=== PATIENT | female | born 1985 | race Caucasian/White ===

== ENCOUNTER 2022-01-25 09:33 | Outpatient (CLI) | payer OTHER, SELFPAY ==
--- OUTSIDE RECORDS SUMMARY | 2022-01-25 10:47 | XMS_ITS ---
:1985 Author Care Team Providers Name Role Phone Charisse Beltran Primary Care Provider Unavailable Allergies Code Code System Name Reaction Severity Status Onset NKDA ? Medications Name Status Start Date Stop Date ? ? albuterol sulfate HFA 90 mcg/actuation aerosol inhaler Active ? Not available INHALE 2 PUFFS EVERY 4 HOURS NEEDED nitrofurantoin monohydrate/macrocrystals 100 mg capsule Active ? Not available Take 1 capsule oral every twelve hours with meals; Take on a fu ll stomach phenazopyridine 200 mg tablet Completed ? TAKE ONE TABLET BY MOUTH THREE TIMES DAILY NEEDED FOR PA IN, take with food Problems None recorded. Procedures None recorded. Results Lab Results Date Name Specimen Result Interpretation Description Value Range Status Address ? 08/15/2021 SARS CoV 2 RNA, Nose (nasal ? Result negative ? ? [facility] QL, SAMRA+probe, passage) [facility] [place]: [address] 06/28/2021 SARS CoV 2 RNA, Nose (nasal ? Result negative ? ? [facility] QL, SAMRA+probe, passage) [facility] [place]: [address] [place] [address] [place] [address] Past Encounters 08/15/2021 Exposure to SARS-CoV-2 [facility]: [address] [place] [address], [place] [address], Ph. [phone] 06/28/2021 Exposure to SARS-CoV-2 Charisse Beltran PA-C: [address], [place] [address], Ph. [phone] Social History None recorded. Vaccine List Vaccine Type Hep B, unspecified formulation 01/15/1993 03/08/1993 07/26/1993 HPV, quadrivalent 03/13/2006 05/16/2006 09/18/2006 influenza, injectable, quadrivalent, pre servative free 02/27/2016 influenza, seasonal, injectable 02/21/2010 02/20/2011 02/26/2012 MMR 02/03/1997 Td (adult), adsorbed 02/03/1997 Tdap 10/06/2012 05/03/2016 Plan of Care Reminders Provider Appointments None recorded. ? ? Lab None recorded. ? ? Referral None recorded. ? ? Procedures None recorded. ? ? Surgeries None recorded. ? ? Imaging None recorded. ? ? Vitals 08/15/2021 08:40AM [facility] Blood Pressure 146/81 mm[Hg] 06/28/2021 09:00AM [facility] Blood Pressure 110/80 mm[Hg]
[2022-01-25 16:04] LABS: SARS PCR* Negative SARS-CoV-2 (Negative)
== END 2022-01-25 09:34 | disposition home or self-care (01) ==
LOC: KYNREF 09:33
PROVIDERS: Visit Provider Nurse Practitioner Family
DX: Z11.52 Encounter for screening for COVID-19 (principal)
CPT/HCPCS: 87635

== ENCOUNTER 2022-01-28 06:36 | Day surgery (SDC) | payer OTHER, SELFPAY ==
[2022-01-28] VITALS (36 sets, daily range): BP systolic 101–133; BP diastolic 57–84; PULSE 70–113; RESP 14–16; TEMP 36.2–36.8; O2SAT 87–99; BMI 34.9
[2022-01-28 07:05] LABS: Ur HCG Qualitative* Negative (Negative)
[2022-01-28] MEDS: LACTATED RINGERS 1000 ML 1,000 ML 100 ML IV (07:30)
[2022-01-28] MEDS: SODIUM CHLORIDE 0.9 % (FLUSH) 10 ML SYRINGE IVF (07:30)
[2022-01-28] MEDS: BUPIVACAINE 0.25% 30 ML INJECTION (08:16)
--- NOTE | 2022-01-28 08:26 | W.ANESCHARGE ---
Anesthesia Charges Start Date/Time Anesthesia Start Date: 01/28/22 Anesthesia Start Time: 07:47 Stop Date/Time Anesthesia Stop Date: 01/28/22 Anesthesia Stop Time: 10:40 Summary Emergency: No
--- NOTE | 2022-01-28 10:54 | PM.GSPRC ---
Operative Note Date of procedure: 01/28/22 Type of Procedure: Laparoscopic repair of epigastric and umbilical hernia repair with mesh. Procedure Description: After discussing the risks and benefits of the procedure, the patient signed informed consent.? The operative site was marked and the patient was brought to the operating room and placed on the operating table in supine position.? Care was taken to pad the patient's pressure points.?? The patient was then intubated by anesthesia.?? The operative site was then prepped and draped in the usual sterile fashion.? A time-out was then performed. Entrance to the abdomen was gained via Visiport technique in the left upper quadrant. The abdomen was then insufflated. This was briefly surveyed for injury. There was none. The epigastric hernia was visible with incarcerated preperitoneal fat and falciform ligament fat. The umbilical hernia contained preperitoneal fat as well. Two additional 5 mm ports were placed in the right lateral abdomen/right lower quadrant under direct vision. Once this was done, I began by reducing the epigastric hernia. The incarcerated fat was reduced by incising the peritoneum at the hernia base. Once this was completely reduced, I used LigaSure to divide the falciform ligament to create a flat area for mesh placement. The patient had a moderate amount of preperitoneal fat in the midline and covering the umbilicus and so to facilitate flat mesh placement, I created preperitoneal flaps down past the umbilical hernia using LigaSure. I started 1st on the patient's right. Once this was done I placed 2 additional ports on the patient's left side, a 10 mm port in the left upper quadrant and a 5 mm port in the patient's left lower quadrant. I then similarly took down the peritoneum on the right. Once this was done I measured the hernias. They were less than 10 cm apart. The epigastric hernia was 3 cm. The umbilical hernia was approximately 1.5 cm. A 15 cm mesh appeared to cover both hernia sufficiently with sufficient overlap superiorly and inferiorly on each. A combination of PDS and Vicryl fascial stitches were then placed in the 10 x 15 cm mesh. This was then placed into the abdomen through the 10 port. Having previously marked out the hernias as well as the 4 quadrants on the skin, a skin ayala was then made in the exact center of the planned hernia placement and through this a Jonny-Laure needle was then used to grasp the positioning suture on the Ventralight ST mesh. Then, using Jonny-Laure, I created stab incisions at 3, 6, 9, and 12 o'clock and pulled the trans fascial sutures through this. The mesh was then pulled to the abdominal wall and found to lay flat, with the abdominal pressure decreased to 11. The trans fascial sutures were then tied. V lock suture was then advanced into the abdomen. The mesh was sewn in a running fashion on the lateral aspect of each side of the mesh to prevent rolling of the edges. Several small tacks were placed at the inferior portion of the mesh and covered with the peritoneal flaps which were tacked in place using the V lock suture. Once this was done, the echo positioning device was then removed from the abdomen intact. The 10 mm port site was then closed with 0 Vicryl using a Jonny-Laure needle. Once this was done, the abdomen was desufflated and the ports removed. The incisions were then closed with 0 Monocryl subcuticular suture. Glue was then applied to all of the incisions including the stab incisions. Anesthesia then performed a tap block. Please see their note for details. ? The patient was then woken and transported to the recovery area in stable condition. ? The patient tolerated the procedure well. Findings: 3 cm epigastric hernia as well as an umbilical hernia. Anesthesia: GETA Surgeon: Mirian Honeycutt MD Estimated blood loss (mL): 25 Condition: stable Disposition: PACU
--- NOTE | 2022-01-28 10:56 | W.PM.NB ---
Nerve Block Nerve Block Time Seen by Provider: 10:30 Date Seen: 01/28/22 Type of block requested by surgeon for post-operative analgesia: TAP Side: bilateral Time out performed: Yes Verification of patient name: Yes Verification of date of : Yes Site marking: site marked Name of person performing procedure: Con Continuous monitoring Was continuous monitoring of O2 sat, B/P, air sampling and monitoring, recorded every 15 minutes?: Yes Procedure Checklist: sterile prep, needles and gloves Ultrasound guided. Images saved: Yes Medications given in 5ml increments after negative aspiration: Marcaine %: 0.25 mL: 30 Needle gauge: 20 and Exparel mL: 10 Patient tolerated procedure well: Yes Additional comments: Needle noted adjacent to nerve Block Charges Block Charge (with Pro Fee): TAP Bilateral Use of Ultrasound Machine for Block: Yes- US Guidance/pain block
--- NOTE | 2022-01-28 10:56 | W.ANESCHARGE ---
Anesthesia Charges Start Date/Time Anesthesia Start Date: 01/28/22 Anesthesia Start Time: 07:47 Stop Date/Time Anesthesia Stop Date: 01/28/22 Anesthesia Stop Time: 10:40 Summary Emergency: No
[2022-01-28] MEDS: fentaNYL 100 MCG/2 ML inj 50 MCG IVP (10:57)
[2022-01-28] MEDS: HYDROCODONE-ACETAMIN 5-325 MG 1 TAB PO ×2 (12:05→13:20)
== END 2022-01-28 13:53 | disposition home or self-care (01) ==
PROVIDERS: Anesthesiology; Visit Provider Surgery
PROC: 0WQF4ZZ Repair Abdominal Wall, Percutaneous Endoscopic Approach (ICD-10-PCS; CPT 49653; principal; 2022-01-28 07:45)
DX: K43.6 Other and unspecified ventral hernia with obstruction, without gangrene (principal); K42.0 Umbilical hernia with obstruction, without gangrene
CPT/HCPCS: 49653; 00832; 64488; 76942; 81025; A4467; A9270; C1781; C9290; J0330; J1100; J1170; J1885; J2405; J2704; J2710; J3010; J3490; J7120

== ENCOUNTER 2022-02-26 11:06 | Emergency (ER) | payer OTHER, SELFPAY ==
[2022-02-26 11:15] VITALS: BP 117/76; PULSE 70; RESP 16; TEMP 36.6; O2SAT 97; BMI 32.6
--- NOTE | 2022-02-26 11:31 | ED.ABDPAIN ---
HPI - Abdominal Pain General Time Seen by Provider: 11:31 Date Seen: 02/26/22 Chief Complaint: Abdominal Pain Stated Complaint: Abdominal pain Time Seen by Provider: 02/26/22 11:30 Source: patient, RN notes reviewed and old records reviewed Mode of arrival: ambulatory Limitations: no limitations History of Present Illness HPI narrative: Patient is a very pleasant 36-year-old female who is 1 month postop laparoscopic hernia repair ventral and umbilical who comes to the emergency room with increasing right flank and right-sided abdominal pain. Patient states that she does not think there were any complications of her surgery however she did wake up from anesthesia with right flank pain. She noted that this continued and now has flared since February 12 to include increasing pain on the right lateral abdomen and now into the right upper quadrant. This is not associated with fever. She has not had any redness around her surgical incisions. She denies any vomiting. She feels like her upper abdomen is swollen and is very tender to the touch. She has no dysuria hematuria. She denies possibility of as she has her tubes tied. She notes movement greatly increases her pain. She has tried ibuprofen but does not think it is really working for her. Related Data Home Medications Medication Instructions Recorded Confirmed albuterol 90 mcg/actuation aerosol mcg inhalation 01/25/22 01/25/22 inhaler ibuprofen 400 mg tablet (IBU) 400 mg PO Q4-6H PRN 02/26/22 02/26/22 Previous Rx's Medication Instructions Recorded hydrocodone 5 mg-acetaminophen 325 1 - 2 tab PO Q6H PRN Pain #20 tabs 01/28/22 mg tablet Allergies Allergy/AdvReac Type Severity Reaction Status Date / Time No Known Allergies Allergy Unknown Verified 02/13/22 13:11 Review of Systems Status of ROS Reports: 10 or more systems reviewed and unremarkable except as noted in History and below Const Denies: fever, chills, change in weight or fatigue Eyes Denies: change in vision ENMT Denies: throat pain or difficulty swallowing Cardio Denies: chest pain, edema, swelling of feet/ankles or shortness of breath with exertion Resp Denies: shortness of breath or cough GI Reports: abdominal pain; Denies: nausea, vomiting, diarrhea, constipation or difficulty swallowing Denies: painful urination Musculo Reports: back pain (Right flank) Integ/Breast Denies: rash Neuro Denies: headache, numbness in extremities or weakness in extremities Endo Denies: fatigue [facility] Medical History Asthma (07/12/10) Tobacco use (07/12/10) White classification A1 gestational diabetes mellitus (GDM) Surgical History History of gynecologic surgery S/P hernia surgery Status post delivery Status post tubal ligation Family History Mother High blood pressure Osteoarthritis Arthritis Father High blood pressure Throat cancer Maternal Grandfather Diabetes Coronary artery disease Maternal Grandmother High blood pressure Prediabetes Paternal Grandmother Breast cancer Social History Narrative: Single. 3 children. 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 Former smoker (quit in 2014). Alcohol socially. No illicit drugs. Smoking Status: Former smoker What tobacco products do you use: cigarettes Smoking quit date/years: <= 15 years ago Do you use any of these nicotine containing products: None How often do you have a drink containing alcohol: 2-3 times a week Alcohol type: beer How many standard drinks containing alcohol do you have on a typical day: 3 or 4 How often do you have six or more drinks on one occasion: Never AUDIT-C Alcohol total score: 4 Non-prescribed substance use: denies use Caffeine: Yes (1 cup 2x/week) Are you using contraception or practicing any form of control: Yes Exam Narrative: Exam Narrative: Patient is alert and oriented. Nontoxic in appearance. Does have increasing pain with movement. External ears eyes nose clear. Heart with regular rate and rhythm and lungs are clear in all lung braden. There did not appear to be increased pain with deep inspiration. Abdomen is firm with some mild tenderness in the right upper quadrant. Negative Frederick sign. Back is nontender with no CVA tenderness with percussion Lower extremities without edema. Const: Vital Signs, click to edit/add: Vital Signs - 24 hr 02/26/22 11:15 Temperature 97.8 F Pulse Rate [Pulse Oximeter] 70 Respiratory Rate 16 Blood Pressure [Ri ght Upper Arm] 117/76 Pulse Oximetry 97 Oxygen Delivery Me thod Room Air Course Course Hospital Course: Given patient's flank pain that has now continued, worsened and is now associated with right anterior abdominal pain will place patient through CT. Will also get labs to include a CBC, comprehensive panel, urinalysis, hCG. An IV will be placed and normal saline given pending IV contrast CT. Vital Signs Vital signs: Initial Vital Signs Temperature 97.8 F 02/26/22 11:15 Temperature Source Temporal Artery Scan 02/26/22 11:15 Pulse Rate 70 02/26/22 11:15 Respiratory Rate 16 02/26/22 11:15 Blood Pressure 117/76 02/26/22 11:15 Blood Pressure Mean 89 02/26/22 11:15 Blood Pressure Position Supine 02/26/22 11:15 Pulse Oximetry 97 02/26/22 11:15 Oxygen Delivery Method 02/26/22 11:15 Vital Signs Temperature 97.8 F 02/26/22 11:15 Pulse Rate 70 02/26/22 11:15 Respiratory Rate 16 02/26/22 11:15 Blood Pressure 117/76 02/26/22 11:15 Pulse Oximetry 97 02/26/22 11:15 Oxygen Delivery Method 02/26/22 11:15 Temperature 97.8 F 02/26/22 11:15 Pulse Rate 70 02/26/22 11:15 Respiratory Rate 16 02/26/22 11:15 Blood Pressure 117/76 02/26/22 11:15 Pulse Oximetry 97 02/26/22 11:15 Oxygen Delivery Method 02/26/22 11:15 MDM - Abdominal Pain MDM Narrative Medical decision making narrative: 1. Abdominal pain-CT negative for underlying abnormality. 2. Right flank pain-CT negative for underlying abnormality and urinalysis without evidence of UTI. 3. 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 She was able to view CT for herself and feels that this pain is most likely musculoskeletal. See she does suggest muscle relaxer as well as physical therapy and follow-up with Dr. Honeycutt next week. Patient does not have a primary MD and thus I did fill out physical therapy form. Patient will continue on ibuprofen as needed. Flexeril 10 mg p.o. t.i.d. p.r.n. number 30 via [id number] is given here. I did speak of the tendency for sedation with this medication and patient should not use alcohol nor should she drive with this medication. Medical Records Attestation: I reviewed the patient's medical records. Lab Data Attestation: I reviewed the patient's lab results. Labs: Lab Results 02/26/22 02/26/22 02/26/22 Range/Units 11:41 11:55 11:55 WBC 6.44 (4.50-11.00) K/uL RBC 4.37 (4.00-5.20) m/uL Hgb 13.0 (12.0-16.0) gm/dL Hct 37.3 (33.0-51.0) % MCV 85 (80-100) fL MCH 30 (26-34) pg MCHC 35 (32-36) gm/dL RDW Coeff of Lisa 12.4 (11.5-15.5) % Plt Count 232 (140-440) K/uL Neut % (Auto) 48.8 (42.0-72.0) % Lymph % (Auto) 38.2 (20-44) % [place] % (Auto) 9.5 (0.0-11.0) % Eos % (Auto) 3.0 (0.0-7.0) % Baso % (Auto) 0.3 (0.0-3.0) % Neut # (Auto) 3.15 (1.7-7.0) K/uL Lymph # (Auto) 2.46 (0.90-2.90) K/uL [place] # (Auto) 0.60 (0.00-0.90) K/UL Eos # (Auto) 0.19 (0.00-0.50) K/uL Baso # (Auto) 0.02 (0.00-0.30) K/uL Abs Immat Gran (auto) 0.01 (0.00-0.30) K/uL Sodium 139 (135-149) mmol/L Potassium 3.9 (3.6-5.1) mmol/L Chloride 103 (96-114) mmol/L Carbon Dioxide 28 (20-32) mmol/L BUN 16 (5-24) mg/dL Creatinine 0.6 (0.5-1.5) mg/dL Estimated Creat Clear 110.86 Estimated GFR 118 ml/min Glucose 135 H (60-115) mg/dL Calcium 9.4 (8.4-10.6) mg/dL Total Bilirubin 0.6 (0.1-1.5) mg/dL AST 28 (12-35) U/L ALT 31 (4-35) U/L Alkaline Phosphatase 76 (40-150) U/L C-Reactive Protein 0.6 (0.5-1.0) mg/dL Total Protein 7.4 (6.0-8.3) g/dL Albumin 4.5 (3.3-5.0) g/dL Urine Color Yellow (Yellow) Urine Appearance Slightly Cloudy A (Clear) Urine pH 7.0 (5.0-8.5) Ur Specific [place] 1.025 (1.000-1.030) Urine Protein Negative (Negative) Urine Glucose (UA) Negative (Negative) Urine Ketones Negative (Negative) Urine Blood Trace-intact A (Negative) Urine Nitrite Negative (Negative) Urine Bilirubin Negative (Negative) Urine Urobilinogen 0.2 (0.2-1.0) Ur Leukocyte Esterase Negative (Negative) Urine RBC 0-2 (0-2) Urine WBC 0-2 (0-5) Ur Squamous Epith Cells Moderate A (None-Few) Urine Bacteria Moderate A (None) Urine HCG, Qual Negative (Negative) Imaging Data CT scan - abdomen: Attestation: I have reviewed the pertinent imaging results. My impression: No acute findings Radiologist's impression: Moderate hepatomegaly and hepatic steatosis. No evidence of obstructive uropathy. Postoperative changes of the anterior abdominal wall status post ventral hernia repair with hernia mesh and demonstration of minimal inflammatory change within the epigastric omentum commensurate with likely prior omental infarct and/or fat necrosis changes. No other acute abdominal abnormality. Discharge Plan Discharge Clinical Impression: Back pain, Abdominal pain Patient Disposition: Home, Self-Care Condition: Improved Additional Instructions: Continue ibuprofen as needed for discomfort. We will also add Flexeril a muscle relaxant to be taken as needed. Please do not use alcohol if using this medication nor drive. This medicine can be sedating. I did write a follow-up physical therapy referral for you. Await phone call for appointment. Plan on seeing Dr. Honeycutt in clinic in a week. Return to the emergency room for fever and worsening symptoms. Prescriptions: No Action albuterol 90 mcg/actuation aerosol inhalation hydrocodone-acetaminophen 5-325 mg Tablet 1 - 2 tab PO Q6H PRN (Reason: Pain) Qty: 20 0RF ibuprofen [IBU] 400 mg tablet 400 mg PO Q4-6H PRN Follow Up/Referrals: Provider,Not a Local [Primary Care Provider] - Stand Alone Forms: [employer] Info Instructions
[2022-02-26] MEDS: 0.9 % SODIUM CHLORIDE 1000 ml 1,000 ML IV (11:55)
[2022-02-26 12:02] LABS: Basophils Absolute Auto 0.02 K/uL (0.00-0.30); Basophils Percent Auto 0.3 % (0.0-3.0); Eosinophils Absolute Auto 0.19 K/uL (0.00-0.50); Hematocrit 37.3 % (33.0-51.0); Immature Granulocytes Abs Auto 0.01 K/uL (0.00-0.30); Lymphocytes Absolute Auto 2.46 K/uL (0.90-2.90); Lymphocytes Percent Auto 38.2 % (20-44); Mean Corpuscular HGB Conc 35 gm/dL (32-36); Mean Corpuscular Hemoglobin 30 pg (26-34); Mean Corpuscular Volume 85 fL (80-100); Monocytes Percent Auto 9.5 % (0.0-11.0); Neutrophils Absolute Auto 3.15 K/uL (1.7-7.0); Neutrophils Percent Auto 48.8 % (42.0-72.0); Platelet Count* 232 K/uL (140-440); RDW Coefficient of Variation % 12.4 % (11.5-15.5); Red Blood Count 4.37 m/uL (4.00-5.20); White Blood Count* 6.44 K/uL (4.50-11.00)
[2022-02-26 12:03] LABS: Slide Review Reflex No
--- OUTSIDE RECORDS SUMMARY | 2022-02-26 12:06 | XMS_ITS | Clinical Summary ---
:1985 Author Organization [facility] [place] [address] Care Team Providers Name Role Phone Pcp, No Primary Care Provider Unavailable Zuri Jordan MD Unavailable Unavailable Allergies No known active allergies Medications Medication Sig Dispensed Refills Start Date End Date Status ALBUTEROL 90 inhale 1 puff by 0 12/03/2004 Active MCG/ACTUATION INHL inhalation route AERO every 4-6 hours as needed ORTHO EVRA 20 apply 1 patch by 3 months 1 03/13/2006 Active MCG-150 MCG/24 HR transdermal route TRANSDERM PATCH once weekly Active Problems No known active problems Immunizations Name Administration Dates Next Due Human Papilloma Virus Vaccine 09/18/2006, 05/16/2006, 200508/23/2005 Influenza, IIV3 (Age >=3 years) 02/17/2002 Pneumococcal Poly,23-Valent (Pneumovax) 02/17/2002 Td (Age >=7 Years) 05/19/1998 Family History Medical History Relation Name Comments Hypertension Mother Diabetes Paternal Grandfather Heart Disease Other grandparent Hyperlipidemia Other grandparent Other Other Blood clots- gra ndparent Relation Name Status Comments Mother Paternal Grandfather Other Social History Tobacco Use Types Packs/Day Years Used Date Current Every Day Smoker Cigarettes 0.5 9 Comments: Smoking History Packs/day: <1 Alcohol Use Standard Drinks/Week Comments Yes 0 (1 standard drink = 0.6 oz pure alcoho l) Occas- 1-2 month Sex Assigned at Date Recorded Not on file Obstetrics History Para Term AB IAB SAB Ectopic Multiple Living Live Births 2 1 1 0 0 0 0 0 1 1 Date Outcome GA Total Labor/2nd/3rd Weight Sex Delivery Anes PTL Rosanna A 1 A5 Name Clin Labor Term 03/14 39w 9h 00m/ 3.32 kg F Vag Epidu Thalia [address] Dr. 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 Pulse 84 07/17/2018 5:26 PM PHYSICAL SCIENCES PROFESSOR Temperature 36.9 ??C (98.4 ??F) 07/17/2018 5:26 PM PHYSICAL SCIENCES PROFESSOR Respiratory Rate 16 07/17/2018 5:26 PM PHYSICAL SCIENCES PROFESSOR Oxygen Saturation 97% 07/17/2018 5:26 PM PHYSICAL SCIENCES PROFESSOR Inhaled Oxygen Concentration - - Weight 67.7 kg (149 lb 3.2 oz) 03/13/2006 2:27 PM CDT Height 156.8 cm (5' 1.75) 03/13/2006 2:27 PM CDT Body Mass Index 27.51 03/13/2006 2:27 PM CDT Plan of Treatment Health Maintenance Due Date Last Done Comments COVID-19 vaccine series (#1) 1984 Tdap 1995 Depression screening for age 12+ 1996 BMI (ht and wt on same day) for 2002 age 18+ Hepatitis C screening for age 1104/02/2002 18-79 Tetanus booster 05/19/2008 05/19/1998 Influenza for age 9-49 01/17/2022 02/17/2002 Pap test for age 21-65 07/13/2023 07/13/2020, 07/13/2020, 11/23/2014, Additional history exists Results Not on filefrom Last 3 Months 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 Zuri Jordan MD 07/17/18
[2022-02-26 12:13] LABS: Chloride* 103 mmol/L (96-114)
[2022-02-26 12:14] LABS: Albumin* 4.5 g/dL (3.3-5.0); Potassium* 3.9 mmol/L (3.6-5.1); Sodium* 139 mmol/L (135-149)
[2022-02-26 12:16] LABS: Creatinine* 0.6 mg/dL (0.5-1.5); Est. Creatinine Clearance* 110.86; Estimated Glomerular Filt Rate 118 ml/min
[2022-02-26 12:17] LABS: Alanine Aminotransferase* 31 U/L (4-35); Alkaline Phosphatase* 76 U/L (40-150); Aspartate Amino Transferase* 28 U/L (12-35); Bilirubin Total* 0.6 mg/dL (0.1-1.5); Blood Urea Nitrogen* 16 mg/dL (5-24); Calcium* 9.4 mg/dL (8.4-10.6); Carbon Dioxide* 28 mmol/L (20-32); Glucose* 135 mg/dL (60-115); Total Protein* 7.4 g/dL (6.0-8.3)
[2022-02-26 12:18] LABS: Appearance Urine Slightly Cloudy (Clear); Bilirubin Urine Negative (Negative); Blood Urine Trace-intact (Negative); Color Urine Yellow (Yellow); Glucose Urine Negative (Negative); Ketones Urine Negative (Negative); Leukocyte Esterase Urine Negative (Negative); Nitrite Urine Negative (Negative); Protein Urine Negative (Negative); Specific Gravity Urine 1.025 (1.000-1.030); Urobilinogen Urine 0.2 (0.2-1.0)
[2022-02-26 12:20] LABS: C Reactive Protein* 0.6 mg/dL (0.5-1.0)
[2022-02-26 12:27] LABS: Bacteria Urine Moderate; RBC Urine 0-2 (0-2); Squamous Epithelial Cell Urine Moderate (None-Few); WBC Urine 0-2 (0-5)
[2022-02-26 12:28] LABS: Ur HCG Qualitative* Negative (Negative)
--- NOTE | 2022-02-26 12:43 | CRLHL7_ITS ---
For Patients: As a result of the Century Cures Act, medical imaging exams and procedure reports are released immediately into your electronic medical record. You may view this report before your referring provider. If you have questions, please contact your health care provider. Indication: Right flank pain, right anterior abdominal Pain Technique: Volumetric multidetector CT images of the abdomen and pelvis were obtained after the administration of intravenous contrast. 93 cc Isovue 370 low osmolar intravenous contrast Comparison: CT abdomen and pelvis December 27, 2021 Findings: The lung bases are clear. The liver is markedly enlarged with moderate hepatic steatosis and hepatomegaly. The portal vein is patent. The gallbladder is unremarkable without evidence of radiopaque calculus. There is no significant common biliary ductal dilatation or abrupt cut off. The spleen is normal in enhancement and size. The stomach and duodenum are grossly unremarkable. The pancreas is normal in enhancement without significant atrophy. The adrenal glands are unremarkable. The kidneys demonstrate preserved corticomedullary differentiation without evidence of obstructive uropathy. There is moderate stool seen throughout the colon without evidence of inflammatory change. The appendix is unremarkable. There is no significant mesenteric, retroperitoneal, or pelvic sidewall lymph nodes. The aorta is nonaneurysmal. There is no significant atherosclerotic disease appreciated. The solid pelvic viscera are grossly unremarkable. There is no free fluid or free air. There is interval postoperative change of the anterior abdominal wall status post ventral hernia repair with minimal inflammatory changes of the omentum appreciated at the epigastrium which may represent sequela prior omental infarct and/or fat necrosis. The lumbar vertebral body heights are grossly maintained with [id number] multilevel degenerative disc disease. There is no significant spondylolisthesis or displaced fracture. Impression: Moderate hepatomegaly and hepatic steatosis. No evidence of obstructive uropathy. Postoperative changes of the anterior abdominal wall status post ventral hernia repair with hernia mesh and demonstration of minimal inflammatory change within the epigastric omentum commensurate with likely prior omental infarct and/or fat necrosis changes. No other acute abdominal abnormality. Please note that all CT scans at this facility use dose modulation, iterative reconstruction, and/or weight-based dosing when appropriate to reduce radiation dose to as low as reasonably achievable. Dictated by Osvaldo Taveras MD @ 02/26/2022 2:34:59 PM (Electronically Signed)
== END 2022-02-26 16:05 | disposition home or self-care (01) ==
PROVIDERS: Emergency Provider Family Medicine
DX: R10.9 Unspecified abdominal pain (principal); M54.9 Dorsalgia, unspecified
CPT/HCPCS: 36415; 74177; 80053; 81001; 81025; 85025; 86140; 87086; 99284; J7030; Q9967